=== PATIENT | male | born 1980 | race Caucasian/White ===

== ENCOUNTER 2018-01-21 19:23 | Emergency (ER) | payer OTHER ==
[~2018-01-21] VITALS: Ht 185.4 cm; Wt 102.1 kg
[~2018-01-21 19:23] MED LIST: ACETAMINOPHEN-1 EAC1 PO; ACETAMINOPHEN-120 ML PO; AMOXICILLIN875 MG PO; DILANTIN100 MG PO; IBUPROFEN 800800 M1 PO; LIDOCAINE VISC100 M1 MM; LORTABELXR PO; MEDROLDOSEPACK PO; NAPROSYN500 MG PO; NOHOMEMEDICATIONS; PENICILLIN VK500 MG PO; ROBAXIN 750 MG750 M1 PO; ZPAK PO
[2018-01-21] MEDS ORDERED: HYDROCODONE-AP1 EAC6 PO (19:33)
[2018-01-21 19:47] LABS: ABSOLUTE EOSINOPHILS 0.3 thou/uL (0.0-0.7); ABSOLUTE LYMPHOCYTES 3.2 thou/uL (0.8-5.3); ABSOLUTE MONOCYTES 0.6 thou/uL (0.0-1.2); ABSOLUTE NEUTROPHILS 4.3 thou/uL (1.6-8.1); BASOPHILS 0.5 %; EOSINOPHILS 3.6 %; HEMATOCRIT 44.1 % (42.0-52.0); HEMOGLOBIN 15.1 gm/dL (14.0-18.0); LYMPHOCYTES 38.1 %; MCH 32.4 pg (26.0-34.0); MCHC 34.3 g/dL (28.0-37.0); MCV 94.5 fL (80.0-100.0); MONOCYTES 7.3 %; MPV 7.6 fl. (7.2-11.1); NUCLEATED RBCS 0 /100WBC; PLATELET COUNT* 208 thou/uL (150-400); POLYS 50.5 %; RBC 4.67 mil/uL (4.50-6.00); RDW-CV 12.7 % (10.5-14.5); WBC 8.5 thou/uL (4.0-11.0)
[2018-01-21 19:57] LABS: ANION GAP 9 mmol/L (7-16); BUN 15 mg/dL (7-18); CALCIUM 9.2 mg/dL (8.5-10.1); CHLORIDE 105 mmol/L (98-107); CO2 29 mmol/L (21-32); CREATININE 1.1 mg/dL (0.6-1.3); GLUCOSE 131 mg/dL (70-99); POTASSIUM 3.6 mmol/L (3.5-5.1); SODIUM 143 mmol/L (136-145)
[2018-01-21 20:04] LABS: ALBUMIN 4.2 g/dL (3.4-5.0); ALKALINE PHOSPHATASE 56 U/L (46-116); SGOT 37 U/L (15-37); SGPT 75 U/L (30-65); TOTAL BILIRUBIN 0.4 mg/dL (<0.1-1.0); TOTAL PROTEIN 7.8 g/dL (6.4-8.2); TROPONIN-I LEVEL <0.06 ng/mL (<0.06)
[2018-01-21] MEDS ORDERED: PROAIR HFA8.5 GM INH (20:11)
[2018-01-21] MEDS ORDERED: ZPAK PO (20:11)
[2018-01-21] MEDS ORDERED: MEDROLDOSEPACK PO (20:11)
[2018-01-21 20:36] VITALS: BP 125/84
--- NOTE | 2018-01-22 10:14 | EKG ---
[place] [address] ELECTROCARDIOGRAM REPORT Name: RYLAND DEL CID JR Room: [facility]#: [id number] Admission: 01/21/18 Attend Phys: Discharge: 01/21/18 Date of : 76 Report #: [id number] THIS REPORT FOR: //name// [facility] ED Test Date: 2018-01-21 Test Time: 19:49:33 Pat Name: RYLAND DEL CID Department: Room: Gender: M [employer]: [place] : 1980 Requested By: Minid Kong Order Number: [id number] MD: Callum Ruiz Measurements Intervals [place] Rate: 84 P: 147 SD: 160 QRS: 2 QRSD: 104 T: 126 QT: 347 QTc: 411 Interpretive Statements Sinus or ectopic atrial rhythm poor r wave progression nonspecific t wave changes No previous ECG available for comparison Electronically Signed On 01-22-2018 10:14:26 CDT by Callum Ruiz [email or web address] <ELECTRONICALLY SIGNED> By: Callum Ruiz MD, [facility] 01/22/18 [id number] Callum Ruiz MD, FACC /EPI
== END 2018-01-21 20:37 | disposition home or self-care (01) ==
LOC: M.ERS 19:23
PROVIDERS: Physician Assistant
DX: J02.9 Acute pharyngitis, unspecified (principal); R06.00 Dyspnea, unspecified

== ENCOUNTER 2018-05-31 16:10 | Emergency (ER) | payer OTHER ==
[~2018-05-31] VITALS: Ht 185.4 cm; Wt 95.3 kg
[~2018-05-31 16:10] MED LIST changes: +HYDROCODONE-AP1 EAC6 PO; +PROAIR HFA8.5 GM INH
[2018-05-31] MEDS ORDERED: MEDROLDOSEPACK PO (17:25)
[2018-05-31 17:30] VITALS: BP 123/89
== END 2018-05-31 17:33 | disposition home or self-care (01) ==
LOC: M.ERS 16:10
DX: J03.90 Acute tonsillitis, unspecified (principal)

== ENCOUNTER 2018-11-01 09:33 | Emergency (ER) | payer OTHER ==
[~2018-11-01] VITALS: Ht 185.4 cm; Wt 86.2 kg
[2018-11-01 09:48] LABS: URINE BILIRUBIN NEGATIVE (Negative); URINE BLOOD NEGATIVE (Negative); URINE CLARITY CLEAR; URINE COLOR YELLOW; URINE GLUCOSE-RANDOM NEGATIVE (Negative); URINE KETONES NEGATIVE (Negative); URINE LEUKOCYTES-REFLEX NEGATIVE (Negative); URINE NITRITE-REFLEX NEGATIVE (Negative); URINE PROTEIN NEGATIVE (Negative); URINE SPECIFIC GRAVITY 1.025 (1.005-1.030); URINE UROBILINOGEN 0.2 E.U./dl (0.2-1.0)
[2018-11-01] MEDS ORDERED: FLOMAX0.4 MG PO (09:54)
[2018-11-01 10:02] VITALS: BP 141/92
== END 2018-11-01 10:02 | disposition home or self-care (01) ==
LOC: M.ERS 09:33
PROVIDERS: Emergency Medicine
DX: N40.0 Benign prostatic hyperplasia without lower urinary tract symptoms (principal)